=== PATIENT | female | born 1970 | race Caucasian/White ===

== ENCOUNTER 2019-03-01 18:02 | Emergency (ER) | payer SELFPAY ==
[~2019-03-01] VITALS: Ht 165.1 cm; Wt 70.8 kg
[2019-03-01 18:28] VITALS: BP 120/92; Ht 165.1 cm; Wt 70.8 kg
== END 2019-03-01 22:33 | disposition left against medical advice (07) ==
LOC: ED 18:02
DX: Z53.21 Procedure and treatment not carried out due to patient leaving prior to being seen by health care provider (principal)